=== PATIENT | male | born 1970 | race Caucasian/White ===

== ENCOUNTER 2019-11-11 16:17 | Inpatient (IN) | payer OTHER ==
--- NOTE | 2019-11-11 19:19 | BHS.RME ---
Substance Use & Tx History - Substance Use History Heroin Substance amount: 3 bags/day Frequency of use: Daily Substance route: Inhalation (ex: sniffing or snorting) Date of Last Use: 11/11/19 Marijuana/Hashish Substance amount: 1-2 blunts K2 Frequency of use: Daily Substance route: Smoking Date of Last Use: 11/11/19 - Last Treatment Date of last treatment: August 2019 Treatment type: Substance Use Disorder (THADDEUS) Where was last treatment: Detox ([facility] - heroin detox) Physical/Psych/Mental Status - Behavior General Behavior: Increased activity (restlessness, agitation) Eye Contact: Normal - Cooperativeness Cooperativeness: Cooperative - Thinking Thought Processes: Goal Directed Thought content: Future oriented - Physical Health Problems Is patient presently having any pain?: No (back and stomach) Does patient presently have any injuries (include location): No Does patient currently have a fever: No COWS - Scale Resting Pulse: 0= [place] 80 or Below Sweatin=Flushed/Facial Moisture Restless Observation: 1= Difficult to Sit Still Pupil Size: 1= Pupils >than Normal Bone or Joint Aches: 1= Mild Discomfort Runny Nose/ Eye Tearin= Nasal Congestion GI Upset > 30mins: 1= Stomach Cramp Tremor Observation: 4= Gross Tremor/Twitching Yawning Observation: 0= None Anxiety or Irritability: 1=Feels Anxious/Irritable Goose Flesh Skin: 0=Smooth Skin COWS Score: 12
[2019-11-11 21:13] VITALS: BMI 24.0
--- NOTE | 2019-11-11 21:50 | HP ---
COWS - Scale Resting Pulse: 0= [place] 80 or Below Sweatin=Flushed/Facial Moisture Restless Observation: 1= Difficult to Sit Still Pupil Size: 1= Pupils >than Normal Bone or Joint Aches: 2= Severe Diffuse Aches Runny Nose/ Eye Tearin= Nasal Congestion GI Upset > 30mins: 2= Nausea/Diarrhea (nausea, no diarrhea) Tremor Observation: 4= Gross Tremor/Twitching Yawning Observation: 0= None Anxiety or Irritability: 2=Irritable/Anxious Goose Flesh Skin: 3=Piloerection COWS Score: 18 CIWA Score - Admission Criteria OASAS Guidelines: Admission for Medically Managed Detox: Requires at least one of the followin. CIWA greater than 12 2. Seizures within the past 24 hours 3. Delirium tremens within the past 24 hours 4. Hallucinations within the past 24 hours 5. Acute intervention needed for co occurring medical disorder 6. Acute intervention needed for co occurring psychiatric disorder 7. Severe withdrawal that cannot be handled at a lower level of care (continued vomiting, continued diarrhea, abnormal vital signs) requiring intravenous medication and/or fluids 8. Admitting History and Physical - Smoking History Smoking history: Current every day smoker Have you smoked in the past 12 months: Yes Aproximately how many cigarettes per day: 3 Admission ROS [facility] Chief Complaint: Seeking admission to detox from heroin. Allergies/Adverse Reactions: Allergies Allergy/AdvReac Type Severity Reaction Status Date / Time Penicillins Allergy Hives Verified 11/11/19 21:03 History of Present Illness: 48 years old male with a history of heroin dependence is seeking admission to detox. This is first admission to [facility] and patient reports that his last detox was at [facility]. He reports that he uses 4 bags of heroin daily. He denies medical history, reports psych. history of bipolar disorder, anxiety, depression and PTSD. He is unemployed, lives in a half-way and reports that he was incarcerated for 26 years and is on parole. He denies blackouts and reports that he overdosed in July 2019. Exam Limitations: No Limitations - Ebola screening Have you traveled outside of the country in the last 21 days: No Have you had contact with anyone from an Ebola affected area: No Have you been sick,other than usual withdrawal symptoms: No Do you have a fever: No - Review of Systems Constitutional: Chills, Malaise, Changes in sleep EENT: reports: Nose Congestion Respiratory: reports: No Symptoms reported Cardiac: reports: No Symptoms Reported GI: reports: Nausea, Poor Appetite, Poor Fluid Intake, Abdominal cramping : reports: No Symptoms Reported Musculoskeletal: reports: Back Pain, Muscle Pain Integumentary: reports: Dryness, Flushing Neuro: reports: Tremors Endocrine: reports: No Symptoms Reported Hematology: reports: No Symptoms Reported Psychiatric: reports: Orientated x3, Anxious, Depressed Other Systems: Reviewed and Negative Patient History - Patient Medical History Hx Asthma: No Hx Chronic Obstructive Pulmonary Disease (COPD): No Hx Cardiac Disorders: No Hx Congestive Heart Failure: No Hx Hypertension: No Hx Hypercholesterolemia: No HX Cerebrovascular Accident: No Hx Seizures: No Hx Diabetes: No Hx Gastrointestinal Disorders: No Hx Liver Disease: No Hx Genitourinary Disorders: No Hx Sexually Transmitted Disorders: No Hx Renal Disease (ESRD): No Hx Thyroid Disease: No Hx Human Immunodeficiency Virus (HIV): No (Negative 2020) Hx Hepatitis C: No Hx Depression: Yes (+ Anxiety) Hx Suicide Attempt: No (Denies suicidal ideation at this time) Hx Bipolar Disorder: Yes Hx Schizophrenia: No - Patient Surgical History Past Surgical History: Yes Hx Neurologic Surgery: No Hx Cataract Extraction: No Hx Cardiac Surgery: No Hx Lung Surgery: No Hx Breast Surgery: No Hx Breast Biopsy: No Hx Abdominal Surgery: No Hx Appendectomy: No Hx Cholecystectomy: No Hx Genitourinary Surgery: No Hx Section: No Hx Orthopedic Surgery: Yes (RIGHT SHOULDER SX 2004) Anesthesia Reaction: No - PPD History Previous Implant?: Yes Documented Results: Negative w/o proof Implanted On Prior R Admission?: No PPD to be Administered?: Yes - Reproductive History Patient is a Female of Child Bearing Age (11 -55 yrs old): No (male) - Smoking Cessation Smoking history: Current every day smoker Have you smoked in the past 12 months: Yes Aproximately how many cigarettes per day: 3 Hx Chewing Tobacco Use: No Initiated information on smoking cessation: Yes 'Breaking Loose' booklet given: 11/11/19 - Substance & Tx. History Hx Alcohol Use: Yes Hx Substance Use: No Substance Use Type: Heroin, Marijuana Hx Substance Use Treatment: Yes ([facility]) - Substances abused Heroin Substance route: Inhalation Frequency: Daily Amount used: 4 BAGS DAILY Age of first use: 42 Date of last use: 11/11/19 K2/Spice Substance route: Smoking Frequency: Daily Amount used: 4 BLUNTS Age of first use: 48 Date of last use: 11/11/19 Admission Physical Exam [facility] - Vital Signs Vital Signs: Vital Signs - 24 hr 11/11/19 21:08 Temperature 97.5 F L Pulse Rate 72 Respiratory 18 Rate Blood Pressure 112/71 - Physical General Appearance: Yes: Moderate Distress, Tremorous, Irritable, Anxious HEENTM: Yes: Within Normal Limits Respiratory: Yes: Lungs Clear, Normal Breath Sounds, No Respiratory Distress Neck: Yes: Within Normal Limits Breast: Yes: Breast Exam Deferred Cardiology: Yes: Regular Rhythm, Regular Rate Abdominal: Yes: Normal Bowel Sounds, Soft Genitourinary: Yes: Within Normal Limits Back: Yes: Normal Inspection Musculoskeletal: Yes: Within Normal Limits Extremities: Yes: Tremors Neurological: Yes: Within Normal Limits Integumentary: Yes: Warm Lymphatic: Yes: Within Normal Limits - Diagnostic (1) Opioid dependence with withdrawal Current Visit: Yes Status: Acute (2) Nicotine dependence Current Visit: Yes Status: Chronic Qualifiers: Nicotine product type: cigarettes Substance use status: uncomplicated Qualified Code(s): F17.210 - Nicotine dependence, cigarettes, uncomplicated (3) Depression Current Visit: Yes Status: Chronic (4) Anxiety Current Visit: Yes Status: Chronic (5) Bipolar disorder Current Visit: Yes Status: Chronic Cleared for Admission [facility] - Detox or Rehab [facility] Level of Care: Medically Managed Detox Regimen/Protocol: Methadone Claeared for Rehab Admission: No Breathalyzer - Breathalyzer Breathalyzer: 0 Urine Drug Screen - Test Device Lot number: [id number] Expiration date: 10/21/21 - Control Is test valid?: Yes - Results Drug screen NEGATIVE: No Urine drug screen results: THC-Marijuana, FEN-Fentanyl, MOP-Opiates, MTD- Methadone Inpatient Rehab Admission - Rehab Decision to Admit Inpatient rehab admission?: No
[2019-11-11] MEDS ORDERED: IBUPROFEN 400 MG TABLET (FP) PO PRN (22:08)
[2019-11-11] MEDS ORDERED: MAG HYDROX/AL HYDROX/SIMETH 30 ML UNIT-DOSE CUP PO PRN (22:08)
[2019-11-11] MEDS ORDERED: MAGNESIUM CITRATE 300 ML BOTTLE PO PRN (22:08)
[2019-11-11] MEDS ORDERED: MENTHOL/PHENOL 1 EACH UD MM PRN (22:08)
[2019-11-11] MEDS ORDERED: MAGNESIUM HYDROX 2400MG/30ML ORAL SUSPENSION 30 ML CUP PO PRN (22:08)
[2019-11-11] MEDS ORDERED: ONDANSETRON *ODT* 4 MG TABLET SL PRN (22:08)
[2019-11-11] MEDS ORDERED: NICOTINE POLACRILEX 2 MG GUM BUC PRN (22:08)
[2019-11-11] MEDS ORDERED: ACETAMINOPHEN 325 MG TABLET (FP) PO PRN ×2 (22:08)
[2019-11-11] MEDS ORDERED: BISMUTH SUBSALICYLATE 524 MG/30 ML UD PO PRN (22:08)
[2019-11-11] MEDS ORDERED: cloNIDine HCL 0.1 MG TABLET PO PRN (22:08)
[2019-11-11] MEDS ORDERED: METHADONE HCL 10 MG TABLET (FOR DETOX USE ONLY) PO ONE (22:30)
[2019-11-12] MEDS: hydrOXYzine PAMOATE 25 MG CAPSULE (FP) PO SCH ×2 (07:13→10:18)
[2019-11-12] MEDS ORDERED: METHADONE HCL 5 MG TABLET (FOR DETOX USE ONLY) PO ONE (10:00)
[2019-11-12] MEDS: NICOTINE 14 MG/24 HOURS TOPICAL PATCH TD SCH (10:18)
--- NOTE | 2019-11-12 10:19 | EKG ---
Test Reason : Blood Pressure : / mmHG Vent. Rate : 045 BPM Atrial Rate : 045 BPM P-R Int : 152 ms QRS Dur : 096 ms QT Int : 426 ms P-R-T Axes : 072 071 065 degrees QTc Int : 368 ms SINUS BRADYCARDIA OTHERWISE NORMAL ECG NO PREVIOUS ECGS AVAILABLE Confirmed by MD Harmeet, Antoine ([id number]) on 11/12/2019 10:19:02 AM Referred By: Confirmed By:Antoine Ga MD
[2019-11-12] MEDS: PRENATAL VITAMINS W/ FOLIC ACID TABLET (FP) PO SCH (10:20)
[2019-11-12 10:51] LABS: HEMATOCRIT 37.5 % (35.4-49); HEMOGLOBIN 12.8 GM/dL (11.7-16.9); MCHC 34.1 g/dl (32.0-35.9); MEAN PLT VOLUME 8.5 fl (7.5-11.1); PLATELET COUNT 211 K/MM3 (134-434); RBC 4.12 M/mm3 (4.00-5.60); RDW 14.8 % (11.9-15.9)
[2019-11-12 10:59] LABS: ALBUMIN 3.3 g/dl (3.4-5.0); BILIRUBIN,TOTAL 0.4 mg/dL (0.2-1); CALCIUM 8.9 mg/dL (8.5-10.1); TOT PROT 6.3 g/dl (6.4-8.2)
--- NOTE | 2019-11-12 11:48 | CONSULT ---
[facility] Psychiatric Consult - Data Date of interview: 11/12/19 Admission source: [facility] Identifying data: Mr Wade is a 48 years old single male, father of 2 daughters, unemployed receiving public assistance, homeless living in a detention seeking detox treatment for opioid and synthetic cannabis Substance Abuse History: Reports history of heroin and k2 use. Refer to addiction counselor's summary for further information Medical History: Unremarkable except orthosurgery for rotator cuff repair right shoulder in 2003. Smokes 3 cigarettes daily Psychiatric History: This is patient's admission to this facility. He reports that he has been suffering with anxiety all his life but only a few years ago he started seeing psychiatrist and taking medications. Reports that he currently sees Dr Olivo at [facility] and he is prescribed Valium 10 mg/tid and Celexa. Denies previous psychiatric hospitalization or suicidal attempt. However, reports feeling very anxious and sleeping poorly Physical/Sexual Abuse/Trauma History: Denies history of abuse as a child or DV relationship as an adult Mental Status Exam - Mental Status Exam Alert and Oriented to: Time, Place, Person Cognitive Function: Fair Mood: Anxious Affect: Appropriate Patient Behavior: Cooperative Speech Pattern: Clear Voice Loudness: Normal Thought Process: Intact, Goal Oriented Hallucinations: Denies Suicidal Ideation: Denies Homicidal Ideation: Denies Insight/Judgement: Poor Sleep: Poorly Appetite: Fair Muscle strength/Tone: Normal Gait/Station: Normal Psychiatric Findings - Problem List ([place] 1, 2,3) (1) Anxiety disorder Current Visit: Yes Status: Chronic (2) Substance-induced anxiety disorder Current Visit: Yes Status: Acute (3) Substance-induced sleep disorder Current Visit: Yes Status: Acute (4) Opioid dependence with withdrawal Current Visit: Yes Status: Acute (5) Cannabis dependence Current Visit: Yes Status: Acute (6) Nicotine dependence Current Visit: Yes Status: Chronic Qualifiers: Nicotine product type: cigarettes Substance use status: uncomplicated Qualified Code(s): F17.210 - Nicotine dependence, cigarettes, uncomplicated - Initial Treatment Plan Initial Treatment Plan: 1) Continue. 2) Start Vistaril 50 mg po Q 4hrs prn for anxiety. 3) Continue inpatient detoxification
--- NOTE | 2019-11-12 12:35 | PN ---
S COWS - Scale Resting Pulse: 0= [place] 80 or Below Sweatin= Beads of Sweat on Face Restless Observation: 1= Difficult to Sit Still Pupil Size: 0= Normal to Room Light Bone or Joint Aches: 2= Severe Diffuse Aches Runny Nose/ Eye Tearin= None GI Upset > 30mins: 0= None Tremor Observation of Outstretched Hands: 2= Slight Tremor Visible Yawning Observation: 1= 1-2x During Session Anxiety or Irritability: 2=Irritable/Anxious Goose Flesh Skin: 0=Smooth Skin COWS Score: 11 S Progress Note (SOAP) Subjective: c/o tiredness, anxiety, irritability, muscle aches, shakes, and sweats. Objective: 11/12/19 12:33 Vital Signs 11/12/19 11/12/19 11/12/19 06:26 07:39 09:10 Temperature 97.3 F L 97.3 F L 98.5 F Pulse Rate 73 73 71 Respiratory 18 18 20 Rate Blood Pressure 125/86 125/86 119/75 O2 Sat by Pulse 97 97 97 Oximetry (%) Laboratory Last Values WBC 4.0 K/mm3 (4.0-10.0) 11/12/19 08:30 RBC 4.12 M/mm3 (4.00-5.60) 11/12/19 08:30 Hgb 12.8 GM/dL (11.7-16.9) 11/12/19 08:30 Hct 37.5 % (35.4-49) 11/12/19 08:30 MCV 91.0 fl (80-96) 11/12/19 08:30 MCH 31.0 pg (25.7-33.7) 11/12/19 08:30 MCHC 34.1 g/dl (32.0-35.9) 11/12/19 08:30 RDW 14.8 % (11.9-15.9) 11/12/19 08:30 Plt Count 211 K/MM3 (134-434) 11/12/19 08:30 MPV 8.5 fl (7.5-11.1) 11/12/19 08:30 Sodium 139 mmol/L (136-145) 11/12/19 08:30 Potassium 4.0 mmol/L (3.5-5.1) 11/12/19 08:30 Chloride 105 mmol/L (98-107) 11/12/19 08:30 Carbon Dioxide 31 mmol/L (21-32) 11/12/19 08:30 Anion Gap 4 MMOL/L (8-16) L 11/12/19 08:30 BUN 8.0 mg/dL (7-18) 11/12/19 08:30 Creatinine 1.0 mg/dL (0.55-1.3) 11/12/19 08:30 Est GFR (CKD-EPI)AfAm 102.69 11/12/19 08:30 Est GFR (CKD-EPI)NonAf 88.61 11/12/19 08:30 Random Glucose 80 mg/dL (74-106) 11/12/19 08:30 Calcium 8.9 mg/dL (8.5-10.1) 11/12/19 08:30 Total Bilirubin 0.4 mg/dL (0.2-1) 11/12/19 08:30 AST 9 U/L (15-37) L 11/12/19 08:30 ALT 14 U/L (13-61) 11/12/19 08:30 Alkaline Phosphatase 55 U/L (45-117) 11/12/19 08:30 Total Protein 6.3 g/dl (6.4-8.2) L 11/12/19 08:30 Albumin 3.3 g/dl (3.4-5.0) L 11/12/19 08:30 Syphilis Serology Non-reactive (NONREACTIVE) 11/12/19 08:30 Labs noted. Assessment: 11/12/19 12:34 AOX3, in no acute respiratory distress. Full ROM, ambulating in the unit. Withdrawal symptoms. Plan: continue detox.
[2019-11-12] MEDS: hydrOXYzine PAMOATE 50 MG CAPSULE (FP) PO PRN (22:22)
[2019-11-12] MEDS: METHOCARBAMOL 500 MG TABLET PO PRN (22:22)
[2019-11-12] MEDS: THIAMINE HCL 100 MG TABLET (FP) PO SCH (22:22)
[2019-11-12] MEDS: MELATONIN 5 MG TABLETS PO SCH (22:23)
[2019-11-13] MEDS ORDERED: METHADONE HCL 10 MG TABLET (FOR DETOX USE ONLY) PO ONE (10:00)
[2019-11-13] MEDS: NICOTINE 14 MG/24 HOURS TOPICAL PATCH TD SCH (10:05)
[2019-11-13] MEDS: PRENATAL VITAMINS W/ FOLIC ACID TABLET (FP) PO SCH (10:05)
--- NOTE | 2019-11-13 12:15 | PN ---
BHS COWS - Scale Resting Pulse: 0= [place] 80 or Below Sweatin= Chills/Flushing Restless Observation: 0= Sits Still Pupil Size: 0= Normal to Room Light Bone or Joint Aches: 2= Severe Diffuse Aches Runny Nose/ Eye Tearin= None GI Upset > 30mins: 0= None Tremor Observation of Outstretched Hands: 0= None Yawning Observation: 0= None Anxiety or Irritability: 2=Irritable/Anxious Goose Flesh Skin: 0=Smooth Skin COWS Score: 5 BHS Progress Note (SOAP) Subjective: c/o mild withdrawal symptoms. Objective: 11/13/19 12:13 Vital Signs 11/13/19 11/13/19 06:09 09:05 Temperature 97.3 F L 98.4 F Pulse Rate 37 L 72 Respiratory 18 16 Rate Blood Pressure 123/64 120/75 O2 Sat by Pulse 98 Oximetry (%) Laboratory Last Values WBC 4.0 K/mm3 (4.0-10.0) 11/12/19 08:30 RBC 4.12 M/mm3 (4.00-5.60) 11/12/19 08:30 Hgb 12.8 GM/dL (11.7-16.9) 11/12/19 08:30 Hct 37.5 % (35.4-49) 11/12/19 08:30 MCV 91.0 fl (80-96) 11/12/19 08:30 MCH 31.0 pg (25.7-33.7) 11/12/19 08:30 MCHC 34.1 g/dl (32.0-35.9) 11/12/19 08:30 RDW 14.8 % (11.9-15.9) 11/12/19 08:30 Plt Count 211 K/MM3 (134-434) 11/12/19 08:30 MPV 8.5 fl (7.5-11.1) 11/12/19 08:30 Sodium 139 mmol/L (136-145) 11/12/19 08:30 Potassium 4.0 mmol/L (3.5-5.1) 11/12/19 08:30 Chloride 105 mmol/L (98-107) 11/12/19 08:30 Carbon Dioxide 31 mmol/L (21-32) 11/12/19 08:30 Anion Gap 4 MMOL/L (8-16) L 11/12/19 08:30 BUN 8.0 mg/dL (7-18) 11/12/19 08:30 Creatinine 1.0 mg/dL (0.55-1.3) 11/12/19 08:30 Est GFR (CKD-EPI)AfAm 102.69 11/12/19 08:30 Est GFR (CKD-EPI)NonAf 88.61 11/12/19 08:30 Random Glucose 80 mg/dL (74-106) 11/12/19 08:30 Calcium 8.9 mg/dL (8.5-10.1) 11/12/19 08:30 Total Bilirubin 0.4 mg/dL (0.2-1) 11/12/19 08:30 AST 9 U/L (15-37) L 11/12/19 08:30 ALT 14 U/L (13-61) 11/12/19 08:30 Alkaline Phosphatase 55 U/L (45-117) 11/12/19 08:30 Total Protein 6.3 g/dl (6.4-8.2) L 11/12/19 08:30 Albumin 3.3 g/dl (3.4-5.0) L 11/12/19 08:30 Syphilis Serology Non-reactive (NONREACTIVE) 11/12/19 08:30 Labs noted. Assessment: 11/13/19 12:13 AOX3, in no acute respiratory distress. Full ROM, ambulating in the unit. Mild Withdrawal symptoms. For d/c tomorrow. Plan: continue detox. D/C in AM.
[2019-11-13] MEDS: hydrOXYzine PAMOATE 50 MG CAPSULE (FP) PO PRN ×2 (14:21→21:34)
[2019-11-13] MEDS: THIAMINE HCL 100 MG TABLET (FP) PO SCH (21:34)
[2019-11-13] MEDS: MELATONIN 5 MG TABLETS PO SCH (21:34)
[2019-11-13] MEDS: METHOCARBAMOL 500 MG TABLET PO PRN (23:59)
[2019-11-14] MEDS: METHOCARBAMOL 500 MG TABLET PO PRN (05:30)
[2019-11-14] MEDS ORDERED: METHADONE HCL 5 MG TABLET (FOR DETOX USE ONLY) PO ONE (06:00)
[2019-11-14 08:06] VITALS: BP 122/68; PULSE 43; TEMP 97.3
--- NOTE | 2019-11-14 11:22 | DS ---
[facility] Detox Discharge Summary Admission Date: 11/11/19 Discharge Date: 11/14/19 - History Present History: Opioid Dependence Additional Comments: Pt is medically cleared and discharged today. Pt completed the detox protocol. Pt is encouraged to follow-up with an outpatient CD program as discussed with his counselor and also to follow-up with his pmd which he verbalized understanding. Pt is AOX3, in no acute respiratory distress, Full ROM, and ambulatory. Pertinent Past History: h/o heroin use disorder. - Physical Exam Results Vital Signs: Vital Signs Temperature 97.3 F L 11/14/19 05:19 Pulse Rate 43 L 11/14/19 05:19 Respiratory Rate 18 11/14/19 05:19 Blood Pressure 122/68 11/14/19 05:19 O2 Sat by Pulse Oximetry (%) 98 11/14/19 05:19 Vital Signs 11/14/19 05:19 Temperature 97.3 F L Pulse Rate 43 L Respiratory 18 Rate Blood Pressure 122/68 O2 Sat by Pulse 98 Oximetry (%) Laboratory Last Values WBC 4.0 K/mm3 (4.0-10.0) 11/12/19 08:30 RBC 4.12 M/mm3 (4.00-5.60) 11/12/19 08:30 Hgb 12.8 GM/dL (11.7-16.9) 11/12/19 08:30 Hct 37.5 % (35.4-49) 11/12/19 08:30 MCV 91.0 fl (80-96) 11/12/19 08:30 MCH 31.0 pg (25.7-33.7) 11/12/19 08:30 MCHC 34.1 g/dl (32.0-35.9) 11/12/19 08:30 RDW 14.8 % (11.9-15.9) 11/12/19 08:30 Plt Count 211 K/MM3 (134-434) 11/12/19 08:30 MPV 8.5 fl (7.5-11.1) 11/12/19 08:30 Sodium 139 mmol/L (136-145) 11/12/19 08:30 Potassium 4.0 mmol/L (3.5-5.1) 11/12/19 08:30 Chloride 105 mmol/L (98-107) 11/12/19 08:30 Carbon Dioxide 31 mmol/L (21-32) 11/12/19 08:30 Anion Gap 4 MMOL/L (8-16) L 11/12/19 08:30 BUN 8.0 mg/dL (7-18) 11/12/19 08:30 Creatinine 1.0 mg/dL (0.55-1.3) 11/12/19 08:30 Est GFR (CKD-EPI)AfAm 102.69 11/12/19 08:30 Est GFR (CKD-EPI)NonAf 88.61 11/12/19 08:30 Random Glucose 80 mg/dL (74-106) 11/12/19 08:30 Calcium 8.9 mg/dL (8.5-10.1) 11/12/19 08:30 Total Bilirubin 0.4 mg/dL (0.2-1) 11/12/19 08:30 AST 9 U/L (15-37) L 11/12/19 08:30 ALT 14 U/L (13-61) 11/12/19 08:30 Alkaline Phosphatase 55 U/L (45-117) 11/12/19 08:30 Total Protein 6.3 g/dl (6.4-8.2) L 11/12/19 08:30 Albumin 3.3 g/dl (3.4-5.0) L 11/12/19 08:30 Syphilis Serology Non-reactive (NONREACTIVE) 11/12/19 08:30 COVID-19 ([facility]) Not detected (Not Detected) 11/11/19 22:30 Labs noted. Pertinent Admission Physical Exam Findings: withdrawal symptoms. - Treatment Hospital Course: Detox Protocol Followed, Detoxed Safely, Responded well, Discharged Condition Good - Medication Discharge Medications: Ambulatory Orders Diazepam [Valium] 10 mg PO TID 11/11/19 - Diagnosis (1) Cannabis dependence Status: Chronic (2) Opioid dependence with withdrawal Status: Acute (3) Nicotine dependence Status: Chronic Qualifiers: Nicotine product type: cigarettes Substance use status: uncomplicated Qualified Code(s): F17.210 - Nicotine dependence, cigarettes, uncomplicated - AMA Did Patient Leave Against Medical Advice: No
== END 2019-11-14 10:11 | disposition home or self-care (01) | DRG 773 ==
LOC: YASAS 16:17 → Y6N 20:43
PROVIDERS: ADMIT Allergy & Immunology; ATTEND Allergy & Immunology
PROC: HZ2ZZZZ Detoxification Services for Substance Abuse Treatment (ICD-10-PCS; principal; 2019-11-11)
DX: F11.23 Opioid dependence with withdrawal (principal); F19.20 Other psychoactive substance dependence, uncomplicated; F17.210 Nicotine dependence, cigarettes, uncomplicated; F19.280 Other psychoactive substance dependence with psychoactive substance-induced anxiety disorder; F19.282 Other psychoactive substance dependence with psychoactive substance-induced sleep disorder; F31.9 Bipolar disorder, unspecified; F41.9 Anxiety disorder, unspecified; Z88.0 Allergy status to penicillin; Z56.0 Unemployment, unspecified; Z59.0 Homelessness
CPT/HCPCS: 36415; 80053; 85027; 86780; 93005; 93010; U0003

== ENCOUNTER 2020-04-30 19:29 | Emergency (ER) | payer OTHER ==
[2020-04-30 19:41] VITALS: BP 166/93; PULSE 60; TEMP 99.2; BMI 22.9
[2020-04-30] MEDS ORDERED: SODIUM CHLORIDE 0.9% 500 ML INFUS.BAG IV ONE (20:24)
[2020-04-30] MEDS ORDERED: ONDANSETRON 4 MG/2 ML VIAL IVPUSH ONE (20:35)
[2020-04-30] MEDS ORDERED: cloNIDine HCL 0.1 MG TABLET PO ONE (20:36)
[2020-04-30] MEDS ORDERED: METOCLOPRAMIDE HCL INJECTION 10 MG/2 ML VIAL IVPB ONE (20:36)
[2020-04-30] MEDS ORDERED: DICYCLOMINE HCL 20 MG/2 ML AMPUL IM ONE (20:36)
[2020-04-30] MEDS ORDERED: METOCLOPRAMIDE HCL INJECTION 10 MG/2 ML VIAL ONE (20:39)
[2020-04-30] MEDS ORDERED: cloNIDine HCL 0.1 MG TABLET ONE (20:39)
[2020-04-30] MEDS ORDERED: DICYCLOMINE HCL 10 MG CAPSULE ONE (20:39)
[2020-04-30] MEDS ORDERED: FAMOTIDINE 20 MG/50 ML IVPB 20 MG/50 ML MG IVPB ONE ×2 (20:43→21:01)
[2020-04-30 21:11] LABS: BASO % 0.5 % (0-2.0); HEMATOCRIT 43.6 % (35.4-49); HEMOGLOBIN 14.8 GM/dL (11.7-16.9); LYMPH % 8.1 % (8-40); MCH 30.6 pg (25.7-33.7); MCHC 33.9 g/dl (32.0-35.9); MEAN CELL VOLUME 90.2 fl (80-96); MEAN PLT VOLUME 8.3 fl (7.5-11.1); MONO % 3.6 % (3.8-10.2); NEUT % 87.8 % (42.8-82.8); PLATELET COUNT 234 K/MM3 (134-434); RBC 4.83 M/mm3 (4.00-5.60); RDW 13.7 % (11.9-15.9); WHITE BLOOD COUNT 8.4 K/mm3 (4.0-10.0)
[2020-04-30 21:45] LABS: CHLORIDE 103 mmol/L (98-107); SODIUM 137 mmol/L (136-145)
[2020-04-30 21:50] LABS: ALBUMIN 3.9 g/dl (3.4-5.0); ANION GAP 10 MMOL/L (8-16); BLOOD UREA NITROGEN 12.2 mg/dL (7-18); CALCIUM 8.9 mg/dL (8.5-10.1); CO2 24 mmol/L (21-32); GLUCOSE,RANDOM 105 mg/dL (74-106); LIPASE 108 U/L (73-393); MAGNESIUM 1.9 mg/dL (1.8-2.4)
[2020-04-30 21:52] LABS: SGOT/AST 26 U/L (15-37); SGPT/ALT 38 U/L (13-61)
[2020-04-30 21:53] LABS: BILIRUBIN,TOTAL 0.5 mg/dL (0.2-1); CREATININE 0.9 mg/dL (0.55-1.3); TOT PROT 7.5 g/dl (6.4-8.2)
[2020-04-30 21:54] LABS: ALK PHOS 62 U/L (45-117)
== END 2020-04-30 23:15 | disposition home or self-care (01) ==
LOC: JER 19:29
PROC: 3E023GC Introduction of Other Therapeutic Substance into Muscle, Percutaneous Approach (ICD-10-PCS; principal; 2020-04-30)
PROC: 3E033GC Introduction of Other Therapeutic Substance into Peripheral Vein, Percutaneous Approach (ICD-10-PCS; 2020-04-30)
PROC: 3E033GC Introduction of Other Therapeutic Substance into Peripheral Vein, Percutaneous Approach (ICD-10-PCS; 2020-04-30)
DX: F11.10 Opioid abuse, uncomplicated (principal); R45.1 Restlessness and agitation
CPT/HCPCS: 36415; 80053; 82550; 82553; 83690; 83735; 84484; 85025; 93005; 93010; 99284-25; J0735

== ENCOUNTER 2020-10-12 15:23 | Inpatient (IN) | payer OTHER ==
[2020-10-12 17:05] VITALS: BMI 21.9
[2020-10-12] MEDS ORDERED: ONDANSETRON *ODT* 4 MG TABLET SL PRN (17:17)
[2020-10-12] MEDS ORDERED: NICOTINE POLACRILEX 2 MG GUM BUC PRN (17:17)
[2020-10-12] MEDS ORDERED: IBUPROFEN 400 MG TABLET (FP) PO PRN (17:17)
[2020-10-12] MEDS ORDERED: BISMUTH SUBSALICYLATE 524 MG/30 ML PO PRN (17:17)
[2020-10-12] MEDS ORDERED: MENTHOL/PHENOL 1 EACH UD MM PRN (17:17)
[2020-10-12] MEDS ORDERED: ACETAMINOPHEN 325 MG TABLET (FP) PO PRN ×2 (17:17)
[2020-10-12] MEDS ORDERED: METHOCARBAMOL 500 MG TABLET PO PRN (17:17)
[2020-10-12] MEDS ORDERED: MAGNESIUM CITRATE 300 ML BOTTLE PO PRN (17:17)
[2020-10-12] MEDS ORDERED: MAGNESIUM HYDROX 2400MG/30ML ORAL SUSPENSION 30 ML CUP PO PRN (17:17)
[2020-10-12] MEDS ORDERED: MAG HYDROX/AL HYDROX/SIMETH 30 ML UNIT-DOSE CUP PO PRN (17:17)
[2020-10-12] MEDS ORDERED: LORazepam 1 MG TABLET PO PRN (17:17)
[2020-10-12] MEDS: LORazepam 1 MG TABLET PO SCH (19:00)
[2020-10-12] MEDS: hydrOXYzine PAMOATE 25 MG CAPSULE (FP) PO SCH ×2 (19:00→22:21)
[2020-10-12] MEDS: PRENATAL VITAMINS W/ FOLIC ACID TABLET (FP) PO SCH (19:05)
[2020-10-12] MEDS: NICOTINE 7 MG/24 HOURS TOPICAL PATCH TD SCH (19:16)
[2020-10-12] MEDS: MELATONIN 5 MG TABLETS PO SCH (22:20)
[2020-10-12] MEDS: THIAMINE HCL 100 MG TABLET (FP) PO SCH (22:20)
[2020-10-12] MEDS: LORazepam 2 MG TABLET PO SCH (22:20)
[2020-10-13] MEDS: hydrOXYzine PAMOATE 25 MG CAPSULE (FP) PO SCH ×2 (06:01→10:55)
[2020-10-13] MEDS: LORazepam 2 MG TABLET PO SCH ×4 (06:02→22:35)
[2020-10-13] MEDS ORDERED: methaDONE HCL 10 MG TABLET ONE (09:55)
[2020-10-13] MEDS ORDERED: methaDONE HCL 10 MG TABLET PO ONE (10:00)
[2020-10-13 10:38] LABS: HEMATOCRIT 39.6 % (35.4-49); HEMOGLOBIN 13.3 GM/dL (11.7-16.9); MCH 30.3 pg (25.7-33.7); MCHC 33.5 g/dl (32.0-35.9); MEAN CELL VOLUME 90.3 fl (80-96); MEAN PLT VOLUME 7.6 fl (7.5-11.1); PLATELET COUNT 212 10^3/uL (134-434); RBC 4.38 M/mm3 (4.00-5.60); RDW 14.5 % (11.9-15.9); WHITE BLOOD COUNT 3.7 K/mm3 (4.0-10.0)
[2020-10-13 10:41] LABS: CALCIUM 8.7 mg/dL (8.5-10.1)
[2020-10-13 10:42] LABS: ALBUMIN 3.3 g/dl (3.4-5.0); BLOOD UREA NITROGEN 12.2 mg/dL (7-18)
[2020-10-13 10:45] LABS: CREATININE 0.9 mg/dL (0.55-1.3)
[2020-10-13 10:47] LABS: BILIRUBIN,TOTAL 0.3 mg/dL (0.2-1); TOT PROT 6.1 g/dl (6.4-8.2)
[2020-10-13] MEDS: NICOTINE 7 MG/24 HOURS TOPICAL PATCH TD SCH (10:49)
[2020-10-13] MEDS: PRENATAL VITAMINS W/ FOLIC ACID TABLET (FP) PO SCH (10:50)
[2020-10-13] MEDS: THIAMINE HCL 100 MG TABLET (FP) PO SCH (22:35)
[2020-10-13] MEDS: MELATONIN 5 MG TABLETS PO SCH (22:35)
[2020-10-14] MEDS ORDERED: methaDONE HCL 10 MG TABLET ONE (04:16)
[2020-10-14] MEDS ORDERED: methaDONE HCL 10 MG TABLET PO SCH (06:00)
[2020-10-14] MEDS: LORazepam 1 MG TABLET PO SCH ×4 (06:04→22:21)
[2020-10-14] MEDS: PRENATAL VITAMINS W/ FOLIC ACID TABLET (FP) PO SCH (10:25)
[2020-10-14] MEDS: hydrOXYzine PAMOATE 50 MG CAPSULE (FP) PO PRN (10:25)
[2020-10-14] MEDS: NICOTINE 7 MG/24 HOURS TOPICAL PATCH TD SCH (10:27)
[2020-10-14] MEDS: propRANOLol HCL 10 MG TABLET PO SCH ×2 (15:27→22:21)
[2020-10-14] MEDS: MELATONIN 5 MG TABLETS PO SCH (22:21)
[2020-10-14] MEDS: THIAMINE HCL 100 MG TABLET (FP) PO SCH (22:21)
[2020-10-15] MEDS ORDERED: LORazepam 0.5 MG TABLET PO PRN
[2020-10-15] MEDS ORDERED: methaDONE HCL 10 MG TABLET ONE (04:53)
[2020-10-15] MEDS: propRANOLol HCL 10 MG TABLET PO SCH ×3 (06:25→22:00)
[2020-10-15] MEDS: LORazepam 0.5 MG TABLET PO SCH ×4 (06:25→22:00)
[2020-10-15] MEDS: PRENATAL VITAMINS W/ FOLIC ACID TABLET (FP) PO SCH (10:01)
[2020-10-15] MEDS: hydrOXYzine PAMOATE 50 MG CAPSULE (FP) PO PRN (10:01)
[2020-10-15] MEDS: NICOTINE 7 MG/24 HOURS TOPICAL PATCH TD SCH (10:02)
[2020-10-15] MEDS: THIAMINE HCL 100 MG TABLET (FP) PO SCH (22:00)
[2020-10-15] MEDS: MELATONIN 5 MG TABLETS PO SCH (22:01)
[2020-10-16] MEDS ORDERED: methaDONE HCL 10 MG TABLET ONE (04:09)
[2020-10-16] MEDS ORDERED: LORazepam 0.5 MG TABLET PO ONE (05:00)
[2020-10-16] MEDS: propRANOLol HCL 10 MG TABLET PO SCH ×3 (06:18→22:39)
[2020-10-16] MEDS: NICOTINE 7 MG/24 HOURS TOPICAL PATCH TD SCH (10:05)
[2020-10-16] MEDS: PRENATAL VITAMINS W/ FOLIC ACID TABLET (FP) PO SCH (10:05)
[2020-10-16] MEDS: lamoTRIgine 100 MG TABLET PO SCH (15:21)
[2020-10-16] MEDS: ESCITALOPRAM OXALATE 10 MG TABLET PO SCH (15:21)
[2020-10-16] MEDS: risperiDONE 3 MG TABLET PO SCH (15:21)
[2020-10-16] MEDS: THIAMINE HCL 100 MG TABLET (FP) PO SCH (22:39)
[2020-10-16] MEDS: MELATONIN 5 MG TABLETS PO SCH (22:39)
[2020-10-17] MEDS ORDERED: methaDONE HCL 10 MG TABLET ONE (04:10)
[2020-10-17] MEDS: propRANOLol HCL 10 MG TABLET PO SCH ×3 (05:57→22:17)
[2020-10-17] MEDS: lamoTRIgine 100 MG TABLET PO SCH (10:10)
[2020-10-17] MEDS: ESCITALOPRAM OXALATE 10 MG TABLET PO SCH (10:11)
[2020-10-17] MEDS: risperiDONE 3 MG TABLET PO SCH (10:11)
[2020-10-17] MEDS: NICOTINE 7 MG/24 HOURS TOPICAL PATCH TD SCH (10:11)
[2020-10-17] MEDS: PRENATAL VITAMINS W/ FOLIC ACID TABLET (FP) PO SCH (10:11)
[2020-10-17] MEDS: MELATONIN 5 MG TABLETS PO SCH (22:17)
[2020-10-17] MEDS: THIAMINE HCL 100 MG TABLET (FP) PO SCH (22:17)
[2020-10-18] MEDS ORDERED: methaDONE HCL 10 MG TABLET ONE (04:34)
[2020-10-18] MEDS: propRANOLol HCL 10 MG TABLET PO SCH ×3 (05:17→22:31)
[2020-10-18] MEDS: NICOTINE 7 MG/24 HOURS TOPICAL PATCH TD SCH (09:47)
[2020-10-18] MEDS: risperiDONE 3 MG TABLET PO SCH (09:48)
[2020-10-18] MEDS: lamoTRIgine 100 MG TABLET PO SCH (09:48)
[2020-10-18] MEDS: PRENATAL VITAMINS W/ FOLIC ACID TABLET (FP) PO SCH (09:48)
[2020-10-18] MEDS: ESCITALOPRAM OXALATE 10 MG TABLET PO SCH (09:49)
[2020-10-18 20:41] VITALS: TEMP 99.1
[2020-10-18] MEDS: THIAMINE HCL 100 MG TABLET (FP) PO SCH (22:31)
[2020-10-18] MEDS: MELATONIN 5 MG TABLETS PO SCH (22:32)
[2020-10-19] MEDS ORDERED: methaDONE HCL 10 MG TABLET ONE (04:00)
[2020-10-19] MEDS: propRANOLol HCL 10 MG TABLET PO SCH (05:45)
[2020-10-19 06:19] VITALS: BP 109/62; PULSE 69
== END 2020-10-19 09:24 | disposition home or self-care (01) | DRG 773 ==
LOC: YASAS 15:23 → Y6N 18:04
PROVIDERS: ADMIT Allergy & Immunology; ATTEND Allergy & Immunology
PROC: HZ2ZZZZ Detoxification Services for Substance Abuse Treatment (ICD-10-PCS; principal; 2020-10-12)
DX: F13.230 Sedative, hypnotic or anxiolytic dependence with withdrawal, uncomplicated (principal); F11.20 Opioid dependence, uncomplicated; F12.20 Cannabis dependence, uncomplicated; F17.213 Nicotine dependence, cigarettes, with withdrawal; F25.0 Schizoaffective disorder, bipolar type; F41.9 Anxiety disorder, unspecified; F19.280 Other psychoactive substance dependence with psychoactive substance-induced anxiety disorder; F19.282 Other psychoactive substance dependence with psychoactive substance-induced sleep disorder; R63.4 Abnormal weight loss; Z88.0 Allergy status to penicillin; Z56.0 Unemployment, unspecified; Z59.0 Homelessness
CPT/HCPCS: 36415; 80053; 85027; 86780; C9803; Q0162; U0003; U0005

== ENCOUNTER 2021-10-31 21:31 | Inpatient (IN) | payer OTHER ==
[2021-10-31] MEDS ORDERED: ONDANSETRON *ODT* 4 MG TABLET SL PRN (23:50)
[2021-10-31] MEDS ORDERED: MAGNESIUM CITRATE 300 ML BOTTLE PO PRN (23:50)
[2021-10-31] MEDS ORDERED: BENZOCAINE/MENTHOL (CHLORASEPTIC ) LOZENGE MM PRN (23:50)
[2021-10-31] MEDS ORDERED: ACETAMINOPHEN 325 MG TABLET (FP) PO PRN ×2 (23:50)
[2021-10-31] MEDS ORDERED: LOPERAMIDE HCL 2 MG CAPSULE PO PRN (23:50)
[2021-10-31] MEDS ORDERED: METHOCARBAMOL 500 MG TABLET PO PRN (23:50)
[2021-10-31] MEDS ORDERED: IBUPROFEN 400 MG TABLET (FP) PO PRN (23:50)
[2021-10-31] MEDS ORDERED: MAGNESIUM HYDROX 2400MG/30ML ORAL SUSPENSION 30 ML CUP PO PRN (23:50)
[2021-10-31] MEDS ORDERED: NICOTINE POLACRILEX 2 MG GUM BUC PRN (23:50)
[2021-10-31] MEDS ORDERED: MAG HYDROX/AL HYDROX/SIMETH 30 ML UNIT-DOSE CUP PO PRN (23:50)
[2021-10-31] MEDS ORDERED: DICYCLOMINE HCL 10 MG CAPSULE PO PRN (23:50)
[2021-10-31] MEDS ORDERED: BISMUTH SUBSALICYLATE 524 MG/30 ML PO PRN (23:50)
[2021-10-31] MEDS ORDERED: IBUPROFEN 600 MG TABLET (FP) PO PRN (23:50)
[2021-11-01] MEDS ORDERED: TUBERCULIN PPD 5 TU/0.1ML VIAL ID ONE (01:12)
[2021-11-01] MEDS ORDERED: PRENATAL VITAMINS W/ FOLIC ACID TABLET (FP) PO SCH (10:00)
[2021-11-01] MEDS ORDERED: NICOTINE 14 MG/24 HOURS TOPICAL PATCH TD SCH (10:00)
[2021-11-01 10:30] LABS: HEMOGLOBIN 14.3 GM/dL (11.7-16.9); MCH 30.4 pg (25.7-33.7); MCHC 34.1 g/dl (32.0-35.9); MEAN CELL VOLUME 89.2 fl (80-96); MEAN PLT VOLUME 8.4 fl (7.5-11.1); PLATELET COUNT 211 10^3/uL (134-434); RBC 4.71 M/mm3 (4.00-5.60); WHITE BLOOD COUNT 4.2 K/mm3 (4.0-10.0)
[2021-11-01 11:01] LABS: CALCIUM 9.2 mg/dL (8.5-10.1)
[2021-11-01 11:02] LABS: ALBUMIN 3.4 g/dl (3.4-5.0); BLOOD UREA NITROGEN 8.9 mg/dL (7-18)
[2021-11-01 11:04] LABS: CREATININE 0.9 mg/dL (0.55-1.3)
[2021-11-01 11:06] LABS: BILIRUBIN,TOTAL 0.5 mg/dL (0.2-1); TOT PROT 6.6 g/dl (6.4-8.2)
[2021-11-01 13:08] VITALS: BP 137/89; PULSE 53; RESP 18; TEMP 97.1
[2021-11-01] MEDS ORDERED: MELATONIN 5 MG TABLETS PO SCH (22:00)
[2021-11-01] MEDS ORDERED: THIAMINE HCL 100 MG TABLET (FP) PO SCH (22:00)
== END 2021-11-01 13:05 | disposition home or self-care (01) | DRG 773 ==
LOC: YASAS 21:31 → Y3N 11-01 00:50
PROVIDERS: ADMIT Allergy & Immunology; ATTEND Allergy & Immunology
PROC: HZ2ZZZZ Detoxification Services for Substance Abuse Treatment (ICD-10-PCS; principal; 2021-11-01)
DX: F11.20 Opioid dependence, uncomplicated (principal); F12.20 Cannabis dependence, uncomplicated; F25.0 Schizoaffective disorder, bipolar type; F31.9 Bipolar disorder, unspecified; F41.9 Anxiety disorder, unspecified; Z28.310 Unvaccinated for COVID-19; Z28.21 Immunization not carried out because of patient refusal; Z87.891 Personal history of nicotine dependence; Z88.0 Allergy status to penicillin
CPT/HCPCS: 36415; 80053; 85027; 86780; C9803-CS; U0003; U0005